=== PATIENT | female | born 1995 | race Caucasian/White ===

== ENCOUNTER 2017-05-17 20:19 | Emergency (ER) | payer OTHER ==
[~2017-05-17] VITALS: Ht 170.2 cm; Wt 59.0 kg
[2017-05-17 20:23] VITALS: BP 98/59
== END 2017-05-17 23:30 | disposition left against medical advice (07) ==
LOC: ER 20:19
DX: Z53.21 Procedure and treatment not carried out due to patient leaving prior to being seen by health care provider (principal)